=== PATIENT | female | born 1980 | race Caucasian/White ===

== ENCOUNTER 2016-06-11 16:15 | Outpatient (CLI) | payer OTHER ==
[2013-06-12 22:54] VITALS: BP 136/56
== END 2016-06-11 16:16 ==
LOC: LABRHC 16:15
PROVIDERS: ATTEND Family Medicine
DX: R07.0 Pain in throat (principal)
CPT/HCPCS: 87070

== ENCOUNTER 2017-04-16 16:53 | Outpatient (CLI) | payer OTHER ==
[2013-06-12 22:54] VITALS: BP 136/56
== END 2017-04-16 16:54 ==
LOC: LABRHC 16:53
PROVIDERS: ATTEND Family Medicine
DX: R07.0 Pain in throat (principal)
CPT/HCPCS: 87070